=== PATIENT | female | born 1965 | race Hispanic/Latino ===

== ENCOUNTER 2017-10-31 18:03 | Emergency (ER) | payer OTHER, SELFPAY ==
[2017-10-31] MEDS ORDERED: ORPHENADRINE CITRATE 30 MG/ML ML ONE (18:44)
[2017-10-31] MEDS ORDERED: KETOROLAC TROMETHAMINE 30MG/ML ONE (18:45)
== END 2017-10-31 19:47 | disposition home or self-care (01) ==
LOC: EDH 18:03
DX: M25.512 Pain in left shoulder (principal); K21.9 Gastro-esophageal reflux disease without esophagitis; E03.9 Hypothyroidism, unspecified; Z90.710 Acquired absence of both cervix and uterus
CPT/HCPCS: 73030; 96372 ×2; 99284; J1885; J2360

== ENCOUNTER → 2018-12-23 | Outpatient (CLI) | payer SELFPAY | END | disposition home or self-care (01) | LOC: OIH 11:14 | PROVIDERS: ATTEND Internal Medicine Cardiovascular Disease | DX: Z13.6 Encounter for screening for cardiovascular disorders (principal) | CPT/HCPCS: 75571 ==

== ENCOUNTER → 2020-03-07 | Outpatient (CLI) | payer OTHER | END | disposition home or self-care (01) | LOC: RAH 14:20 | PROVIDERS: ATTEND Family Medicine | DX: Z01.818 Encounter for other preprocedural examination (principal) ==

== ENCOUNTER → 2020-12-20 | Outpatient (CLI) | payer OTHER | END | disposition home or self-care (01) | LOC: RAH 14:59 | PROVIDERS: ATTEND Family Medicine | DX: I73.9 Peripheral vascular disease, unspecified (principal) | CPT/HCPCS: 93925 ==

== ENCOUNTER 2023-02-19 07:47 | Day surgery (SDC) | payer OTHER, MEDICARE ==
[~2023-02-19] VITALS: Ht 157.5 cm; Wt 72.6 kg
[2023-02-19] MEDS ORDERED: 0.9%NACL 1000ML 1,000 ML IV ONE (08:41)
[2023-02-19 08:50] VITALS: BP 133/82; PULSE 78; RESP 19
[2023-02-19] MEDS ORDERED: PROPOFOL 10 MG/ML 20ML VIAL IV ONE ×2 (09:11→09:58)
[2023-02-19 09:24] LABS: SARS-CoV-2, RNA, NAAT NEGATIVE SARS CoV-2 (NEGATIVE)
[2023-02-19 10:05] VITALS: BP 127/75; PULSE 89; RESP 16
[2023-02-19] MEDS ORDERED: METO25TA6 PO (10:08)
[2023-02-19] MEDS ORDERED: MAGN400T53 PO (10:08)
[2023-02-19] MEDS ORDERED: FLUT1BLS3 IH (10:08)
[2023-02-19] MEDS ORDERED: HYDROCODONE PO (10:08)
[2023-02-19] MEDS ORDERED: EMPA25TA PO (10:08)
[2023-02-19] MEDS ORDERED: MV-M1TAB20 PO (10:08)
[2023-02-19] MEDS ORDERED: ASCO500C18 PO (10:08)
[2023-02-19] MEDS ORDERED: GABA600T10 PO (10:08)
[2023-02-19] MEDS ORDERED: HYDR5TAB14 PO (10:08)
[2023-02-19] MEDS ORDERED: MECL-160 PO (10:08)
[2023-02-19] MEDS ORDERED: METO10TA3 PO (10:08)
[2023-02-19] MEDS ORDERED: DILT180C77 PO (10:08)
[2023-02-19] MEDS ORDERED: LEVO88CA4 PO (10:08)
[2023-02-19] MEDS ORDERED: OMEG-148 PO (10:08)
[2023-02-19] MEDS ORDERED: DULO60CA64 PO (10:08)
[2023-02-19] MEDS ORDERED: PRAS25CA3 PO (10:08)
[2023-02-19] MEDS ORDERED: HYDR30CR79 RC (10:08)
[2023-02-19] MEDS ORDERED: ONDA-104 PO (10:08)
[2023-02-19] MEDS ORDERED: CELE100C97 PO (10:08)
[2023-02-19] MEDS ORDERED: ALBU0.63 IH (10:08)
[2023-02-19] MEDS ORDERED: METF-446 PO (10:08)
[2023-02-19] MEDS ORDERED: ATOR20TA65 PO (10:08)
[2023-02-19 10:15] VITALS: BP 112/82; PULSE 81; RESP 16
[2023-02-19 10:25] VITALS: BP 134/80; PULSE 80; RESP 15
[2023-02-19 10:35] VITALS: BP 139/74; PULSE 75; RESP 16
== END 2023-02-19 10:45 | disposition home or self-care (01) ==
LOC: ENDO 07:47 → DAH 07:47 → ENDO 10:45
PROVIDERS: ATTEND Internal Medicine Gastroenterology
DX: R13.10 Dysphagia, unspecified (principal); Z20.822 Contact with and (suspected) exposure to COVID-19; R10.13 Epigastric pain; K21.00 Gastro-esophageal reflux disease with esophagitis, without bleeding; K29.50 Unspecified chronic gastritis without bleeding; R19.7 Diarrhea, unspecified; D64.9 Anemia, unspecified; I10 Essential (primary) hypertension; J44.9 Chronic obstructive pulmonary disease, unspecified; G47.30 Sleep apnea, unspecified; E11.9 Type 2 diabetes mellitus without complications; M79.7 Fibromyalgia; E78.5 Hyperlipidemia, unspecified; E03.9 Hypothyroidism, unspecified; K76.0 Fatty (change of) liver, not elsewhere classified; E80.6 Other disorders of bilirubin metabolism; Z86.010 Personal history of colon polyps; Z98.890 Other specified postprocedural states; Z98.51 Tubal ligation status; Z90.49 Acquired absence of other specified parts of digestive tract; Z82.49 Family history of ischemic heart disease and other diseases of the circulatory system; Z80.0 Family history of malignant neoplasm of digestive organs; Z80.1 Family history of malignant neoplasm of trachea, bronchus and lung; Z80.3 Family history of malignant neoplasm of breast
CPT/HCPCS: 82948; 88305; 88342; 87635; 43239; 43248; J7030 ×2; J2704; A4620; A4215 ×2; A4223; A4657 ×3; A7002; A4222; A4221; A4663; A4606; J3490

== ENCOUNTER → 2023-04-11 | Outpatient (CLI) | payer OTHER, MEDICARE ==
[~2023-04-11] MED LIST: ALBU0.63 IH; ASCO500C18 PO; ATOR20TA65 PO; CELE100C97 PO; DILT180C77 PO; DULO60CA64 PO; EMPA25TA PO; FLUT1BLS3 IH; GABA600T10 PO; HYDR30CR79 RC; HYDR5TAB14 PO; HYDROCODONE PO; LEVO88CA4 PO; MAGN400T53 PO; MECL-160 PO; METF-446 PO; METO10TA3 PO; METO25TA6 PO; MV-M1TAB20 PO; OMEG-148 PO; ONDA-104 PO; PRAS25CA3 PO
[2023-04-11 16:22] LABS: BASOPHILS # (AUTO) 0.06 K/uL (0.00-0.20); BASOPHILS % (AUTO) 0.7 % (0.0-5.0); EOSINOPHILS # (AUTO) 0.15 K/uL (0.00-0.70); EOSINOPHILS % (AUTO) 1.9 % (0.0-8.0); IMMATURE GRANULOCYTE ABSOLUTE 0.09 K/uL (0-1); LYMPHOCYTES # (AUTO) 3.5 K/uL (1.0-4.8); LYMPHOCYTES % (AUTO) 42.7 % (21.0-51.0); MEAN CORPUSCULAR HEMOGLOBIN 20.4 pg (27.0-33.0); MEAN CORPUSCULAR HGB CONC 30.6 g/dL (32.0-36.0); MEAN CORPUSCULAR VOLUME 66.8 fL (79-99); MONOCYTES # (AUTO) 0.6 K/uL (0.1-1.0); MONOCYTES % (AUTO) 7.4 % (3.0-13.0); NEUTROPHILS # (AUTO) 3.7 K/uL (1.8-7.7); NEUTROPHILS % (AUTO) 46.2 % (40.0-77.0); NUCLEATED RED BLOOD CELLS 0.7 % (0.0-0.19); PLATELET COUNT (AUTO) 275 K/uL (130-400); RED BLOOD CELL COUNT(AUTO) 5.39 MIL/uL (4.00-5.50); RED CELL DISTRIBUTION WIDTH 17.8 % (11.0-15.5); WHITE BLOOD COUNT (AUTO) 8.1 K/uL (4.8-10.8)
[2023-04-11 16:38] LABS: ALBUMIN 3.6 g/dL (3.5-5.0); CREATININE 0.7 mg/dL (0.5-1.5); MAGNESIUM 1.7 mg/dL (1.80-2.40); TOTAL PROTEIN, SERUM 6.5 g/dL (6.0-8.3)
[2023-04-11 17:14] LABS: PLATELET MORPHOLOGY LARGE PLTS PRESENT
== END | disposition home or self-care (01) ==
LOC: LAB 14:37
PROVIDERS: ATTEND Physician Assistant
DX: R00.2 Palpitations (principal); E78.5 Hyperlipidemia, unspecified
CPT/HCPCS: 36415; 80053; 82533; 83735; 85025

== ENCOUNTER → 2023-04-24 | Outpatient (CLI) | payer OTHER, MEDICARE ==
[2023-04-24 13:07] LABS: APPEARANCE,URINE CLEAR (CLEAR); BACTERIA,URINE RARE /HPF (None Seen); BILIRUBIN,URINE NEGATIVE (NEGATIVE); COLOR,URINE COLORLESS (YELLOW); GLUCOSE, URINE (UA) >=1000 mg/dL (NEGATIVE); KETONES,URINE NEGATIVE (NEGATIVE); LEUKOCYTE ESTERASE ,URINE 25 Leu/uL (NEGATIVE); NITRATE,URINE NEGATIVE (NEGATIVE); OCCULT BLOOD,URINE NEGATIVE (NEGATIVE); PH,URINE 6.5 (5.0-8.0); PROTEIN,URINE NEGATIVE (NEGATIVE); SQUAMOUS EPITHELIAL CELL,UR RARE /HPF (0-2); UROBILINOGEN,URINE 0.2 mg/dL (0.2-1.0); YEAST,URINE BUDDING FEW /HPF (None Seen); YEAST,URINE HYPHAE FEW /HPF (None Seen)
== END | disposition home or self-care (01) ==
LOC: LAB 11:37
PROVIDERS: ATTEND Physician Assistant
DX: I10 Essential (primary) hypertension (principal); R06.02 Shortness of breath; E11.9 Type 2 diabetes mellitus without complications
CPT/HCPCS: 81001; 82382; 83835

== ENCOUNTER → 2023-07-26 | Outpatient (CLI) | payer OTHER, MEDICARE ==
[~2023-07-26] MED LIST changes: +CELE-146 PO; -CELE100C97 PO; -MECL-160 PO; +MECL-302 PO
[2023-07-26 10:22] LABS: INR < 0.93 (0.85-1.15); PROTHROMBIN TIME 10.4 SEC (9.6-11.6)
[2023-07-26 10:24] LABS: PARTIAL THROMBOPLASTIN TIME 28.1 SEC (26.3-35.5)
== END | disposition home or self-care (01) ==
LOC: RAH 11:30
PROVIDERS: ATTEND Otolaryngology Plastic Surgery within the Head & Neck
DX: R59.0 Localized enlarged lymph nodes (principal); Z79.01 Long term (current) use of anticoagulants; Z79.899 Other long term (current) drug therapy
CPT/HCPCS: 36415; 38505; 76942; 85610; 85730; 88305